=== PATIENT | male | born 1995 | race Caucasian/White ===

== ENCOUNTER 2020-08-17 04:54 | Emergency (ER) | payer MEDICAID ==
[~2020-08-17] VITALS: Ht 162.6 cm; Wt 59.0 kg
[2020-08-17 04:55] VITALS: BP_SYST 110
--- NOTE | 2020-08-17 04:55 | NUR ---
Placed in 1 . Placed on ekg monitor tech, blood pressure machine and pulse oximeter. stefani/ DAPHNE DA SILVA
--- NOTE | 2020-08-17 04:56 | NUR ---
Pt present to the ER accompained by ADPHNE Kelly for an okay to book. Pt has no complaints at this time. Pt has b/l abrasions to the knees. Denies any pain, recent tetnus shot. As per patient fell on broken glass.
--- NOTE | 2020-08-17 05:00 | NUR ---
B/L Knee abrasions cleansed w/ betadine and normal saline. Pt tolerated well.
--- NOTE | 2020-08-17 05:08 | NUR ---
Patient refused Tetnus vaccine. aware.
--- NOTE | 2020-08-17 05:20 | NUR ---
Patient given written and verbal discharge instructions and verbalizes understanding. ER MD discussed with patient the results and treatment provided. Patient in stable condition. ID arm band removed. Patient educated on pain management and to follow up with PMD. Opportunity for questions provided and answered. Medication side effect fact sheet provided.
== END 2020-08-17 05:20 ==
LOC: SED 04:54
DX: S80.212A Abrasion, left knee, initial encounter (principal); S80.211A Abrasion, right knee, initial encounter; W22.8XXA Striking against or struck by other objects, initial encounter; Y93.89 Activity, other specified; Y92.89 Other specified places as the place of occurrence of the external cause; Y99.8 Other external cause status
CPT/HCPCS: 99283